=== PATIENT | male | born 1965 | race Caucasian/White ===

== ENCOUNTER → 2023-12-25 12:13 | Outpatient (BNVA) | payer OTHER, SELFPAY | PROVIDERS: PCP Family Medicine; Referring Provider Family Medicine; Visit Provider Internal Medicine | DX: R07.9 Chest pain, unspecified (principal) | CPT/HCPCS: 93005 ==

== ENCOUNTER 2024-01-02 06:39 | Outpatient (CLI) | payer OTHER, SELFPAY ==
--- NOTE | 2024-01-02 07:15 | USCV_ITS ---
Aspen, Jeff Age: 58 Gender: M : 1965 Exam Date: 01/02/2024 06:56 Ordering Phys: Ramone Ibarra M.D ([email or web address]) Technologist: Gerry Gutiérrez Exam Location: [facility] [place] Indication: as BP: 124 / 63 HR: 0 Rhythm: Sinus Technical Quality: Adequate MEASUREMENTS (Male / Female) Normal Values 2D ECHO LV Diastolic Diameter PLAX 5.0 cm 4.2 - 5.9 / 3.9 - 5.3 cm IVS Diastolic Thickness 0.9 cm 0.6 - 1.0 / 0.6 - 0.9 cm IVS Systolic Thickness 1.7 cm LVPW Diastolic Thickness 1.2 cm 0.6 - 1.0 / 0.6 - 0.9 cm LVPW Systolic Thickness 1.7 cm LVOT Diameter 2.0 cm LV Ejection Fraction 2D Teich 69.9 % LV Ejection Fraction MOD 2C 53.6 % LV Ejection Fraction 2C AL 0.0 % LA Diameter 3.9 cm Aorta at Sinotubular Diameter 3.2 cm IVC Diameter 1.9 cm M-MODE LA Ao Ratio MM 1.4 AV Cusp Separation MM 2.2 cm DOPPLER AV Peak Velocity 233.0 cm/s LVOT Peak Velocity 113.0 cm/s AV Area Cont Eq vti 1.3 cm squared AV Area Cont Eq pk 1.4 cm squared MV Area PHT 4.1 cm squared Mitral E to A Ratio 1.5 TV Peak Velocity 192.3 cm/s TR Peak Velocity 217.0 cm/s TR Peak Gradient 18.8 mmHg TV Peak E Velocity 101.0 cm/s Right Atrial Pressure 3.0 mmHg Pulmonary Artery Systolic Pressu 21.8 mmHg FINDINGS Left Ventricle Left ventricle is normal size. LV systolic function is normal with EF of 55-60 %. No regional wall motion abnormalities are seen. Right Ventricle Normal in size and function Right Atrium Normal in size Left Atrium Dilated. Mitral Valve Structurally normal aortic valve. Mild mitral regurgitation. Aortic Valve Aortic valve is thickened. Mild aortic stenosis with aortic valve area 1.43 cm2 and mean gradient of 10 mmHg. Tricuspid Valve Mild tricuspid regurgitation. RVSP is normal. Pulmonic Valve Not well visualized Pericardium Normal Aorta Ascending aorta is dilated. IVC Appears to be normal CONCLUSIONS LV systolic function is normal with EF of 55 to 60%. Left atrial dilation. Mild mitral regurgitation. Mild aortic stenosis. Mild tricuspid regurgitation. Ascending aorta is dilated with diameter of 3.8 cm. No comparison studies are available Ramone Ibarra MD (Electronically Signed) Final Date: 07 January 2024 11:55 S
== END 2024-01-02 06:40 | disposition home or self-care (01) ==
LOC: RAD 06:39
PROVIDERS: PCP Family Medicine; Visit Provider Internal Medicine
DX: I08.3 Combined rheumatic disorders of mitral, aortic and tricuspid valves (principal); R06.02 Shortness of breath
CPT/HCPCS: 93306

== ENCOUNTER 2024-06-13 10:31 | Outpatient (CLI) | payer OTHER, SELFPAY ==
--- NOTE | 2024-06-13 11:00 | USCV_ITS ---
Jeff Louise Age: 59 Gender: M : 1965 Exam Date: 06/13/2024 10:46 Ordering Phys: Ramone Ibarra M.D ([email or web address]) Technologist: CT Exam Location: [facility] [place] Indication: aaa HISTORY: Diameter (cm) AP x Transverse x Length Velocity (cm/s) Waveform Prox Aorta: x x Mid Aorta: 2.50 x 2.40 x 68.80 Distal Aorta: 3.07 x 2.90 x 46.10 Right Iliac Prox: 1.30 x 1.30 x 108.50 Left Iliac Prox: 1.30 x 1.30 x 112.40 Stent Prox Landing x x Aneurysmal Sac Max x x Lt Lat Sac Dim Rt Lat Sac Dim Stent Dist Landing x x Right Iliac Stent x x Left Iliac Stent x x Right Renal Art Left Renal Art FINDINGS: CONCLUSIONS Slight aneurysmal dilatation Distal abdominal aorta measuring 3.1 x 2.9cm Normal iliac arteries Mild atheromatous disease Garland Mera MD (Electronically Signed) Final Date: 13 June 2024 17:33 S
== END 2024-06-13 10:32 | disposition home or self-care (01) ==
LOC: RAD 10:34
PROVIDERS: PCP Family Medicine; Visit Provider Internal Medicine
DX: I71.40 Abdominal aortic aneurysm, without rupture, unspecified (principal)
CPT/HCPCS: 93978

== ENCOUNTER → 2024-11-27 10:42 | Outpatient (BNVA) | payer OTHER, SELFPAY | PROVIDERS: PCP Family Medicine; Visit Provider Nurse Practitioner Family | DX: R00.1 Bradycardia, unspecified (principal); I10 Essential (primary) hypertension | CPT/HCPCS: 93005 ==

== ENCOUNTER 2024-12-29 07:04 | Outpatient (CLI) | payer OTHER, SELFPAY ==
[2024-12-29 07:37] VITALS: BMI 29.5
--- NOTE | 2024-12-29 07:43 | ECG_ITS ---
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 The perfusion scan will be documented separately. DATA: Baseline heart rate was 49 beats per minute. Baseline blood pressure was 120/74 millimeters of mercury. Target heart rate was 159. Maximum heart rate achieved was 74. which was 46% of the predicted target heart rate. Maximum blood pressure was 125/84 millimeters of mercury. The reason for ending the test was completion of the protocol. The patient did not experience any symptoms. ELECTROCARDIOGRAM: BASELINE: Sinus bradycardia. Normal axis. Otherwise, no ST-T changes suggestive of ischemia noted. No arrhythmia noted. EXERCISE: After Lexiscan injection, no ST-T changes suggestive of ischemic noted. No arrhythmia noted. CONCLUSION: Please note due to baseline abnormality of the EKG specificity and sensitivity of the EKG portion of LexiScan MIBI stress test will be low 1. EKG not suggestive of ischemia 2. Lexiscan injection unremarkable. 3. Perfusion scan will be documented separately. Electronically Signed On 01-18-2025 18:52:17 CDT by MACIEJ COATES [email or web address]
--- NOTE | 2024-12-29 07:43 | NMCV_ITS ---
NM leandra perf SPECT r/s* [id number] Jeff Louise Age: 59 Gender: M : 1965 Exam Date: 12/29/2024 08:19 Ordering Phys: Gladis Carl NP Technologist: KEE De La Cruz Exam Location: [facility] Indications: cp STRESS TEST [facility] IMAGE PROTOCOL Rest/Stress 1 Lexiscan Day Radiopharmaceutical Dose (mCi) Administration Site Administered by Rest: Tc-99m 10.6 IV KEE De La Cruz Sestamibi Stress:Tc-99m 32.5 IV KEE Cowart Sestamibi Rest: 29-Dec-2024 60 Discovery 630 Stress: 29-Dec-2024 30 Discovery 630 0.4mg Lexiscan. Images obtained in supine and prone position. SPECT RESULTS Technical Quality: Good Raw Data Analysis: Normal Image Corrections: No attenuation or motion correction applied Summed Stress Score: 9 Summed Rest Score: 14 Summed Difference Score: 2 PERFUSION FINDINGS There is large area of fixed perfusion defect seen in the apical inferior, inferior and inferolateral sena. This is consistent with large areas of prior infarct seen in the RCA territory. FUNCTIONAL RESULTS (calculated via Gated SPECT) Stress Image LV EF (%): 59 Stress EDV (mL):155 TID: 0.88 Stress ESV (mL):64 FUNCTIONAL FINDINGS: There is normal left ventricular systolic function. IMPRESSIONS 1. 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 No significant ischemia 2. LV systolic function is normal Ramone Ibarra MD (Electronically Signed) Final Date: 29 December 2024 11:21 S
[2024-12-29] MEDS: regadenoson 0.4 Mg/5 ml Syringe IVP (08:41)
[2024-12-29 08:53] VITALS: BP 121/61; PULSE 64
== END 2024-12-29 07:05 | disposition home or self-care (01) ==
PROVIDERS: PCP Family Medicine; Visit Provider Nurse Practitioner Family
DX: R07.9 Chest pain, unspecified (principal); R93.1 Abnormal findings on diagnostic imaging of heart and coronary circulation
CPT/HCPCS: 36415; 78452; 93017; 96374; A9500; J2785

== ENCOUNTER 2025-06-30 15:22 | Outpatient (CLI) | payer OTHER, SELFPAY ==
[2025-06-30 15:55] LABS: Anion Gap 13.0 (5-19); Blood Urea Nitrogen 15 mg/dL (8-23); Calcium 9.5 mg/dL (8.5-10.5); Carbon Dioxide 24 mmol/L (22-29); Chloride 103 mmol/L (98-107); Glucose 112 mg/dL (65-115); Osmolality Calculated 284 mOsm/kg (285-295); Potassium 4.0 mmol/L (3.5-5.1); Sodium 136 mmol/L (136-145)
[2025-06-30] MEDS: iohexol 350 mg/mL 500 mL Btl (per mL) IV (16:22)
--- NOTE | 2025-06-30 16:30 | CT_ITS ---
WS: [id number] CTA THORACIC AORTA WITH AND WITHOUT CONTRAST HISTORY: ascending aneurysm TECHNIQUE: CTA imaging of the thorax is performed with and without contrast. After noncontrast imaging is performed, CT angiogram is performed during injection of Omnipaque 350; 100 mL IV.. Sagittal and coronal reconstructions, sagittal and coronal MIP imaging is submitted. All CT scans at [facility] use at least one of these dose optimization techniques: automated exposure control; mA and/or kV adjustment per patient size (includes targeted exams where dose is matched to clinical indication); or iterative reconstruction. DLP: 918.72 mGy.cm COMPARISON: No similar studies. Mild atherosclerotic plaque within the thoracic aorta. Small amount of plaque associated with aortic valve. Good contrast opacification of the thoracic aorta. Maximum ascending aorta diameter is 3.8 cm. Descending aorta at similar location is 2.5 cm. Normal sinotubular junction at 2.7 cm. Normal sinus of Valsalva 3.5 cm. Great vessels arise normally from the arch. Normal descending aorta. No dissection. Normal size heart. Scattered calcifications in the LEFT anterior descending coronary artery. No pericardial or pleural effusions. Lungs are clear and well aerated. Minimal linear scarring or atelectasis in the lingula and at the LEFT lung base. Normal size pulmonary artery. Small hiatal hernia. Mild RIGHT adrenal gland hyperplasia and thickening. No destructive bone lesions. CT/CT angio chest [id number] IMPRESSION: 1. Minimally ectatic ascending aorta with no aneurysm. 2. Mild atherosclerotic plaque within the thoracic aorta. 3. Normal pulmonary artery. 4. LAD coronary calcifications. 5. No pneumonia or pulmonary mass.
== END 2025-06-30 15:23 | disposition home or self-care (01) ==
LOC: RAD 15:24
PROVIDERS: PCP Family Medicine; Visit Provider Nurse Practitioner Family
DX: I77.810 Thoracic aortic ectasia (principal); I70.0 Atherosclerosis of aorta; I25.10 Atherosclerotic heart disease of native coronary artery without angina pectoris
CPT/HCPCS: 36415; 71275; 80048

== ENCOUNTER 2025-07-01 08:26 | Outpatient (CLI) | payer OTHER, SELFPAY ==
--- NOTE | 2025-07-01 09:00 | USCV_ITS ---
Jeff Louise Age: 60 Gender: M : 1965 Exam Date: 07/01/2025 08:36 Ordering Phys: Gladis Carl NP Technologist: Exam Location: [facility] [place] Indication: AAA HISTORY: Diameter (cm) AP x Transverse x Length Velocity (cm/s) Waveform Prox Aorta: 2.70 x 1.90 x 58.50 Mid Aorta: 3.40 x 3.30 x 69.30 Distal Aorta: 3.10 x 3.60 x 38.90 Right Iliac Prox: 1.27 x 1.70 x 94.50 Left Iliac Prox: 1.46 x 1.30 x 67.40 Stent Prox Landing x x Aneurysmal Sac Max x x Lt Lat Sac Dim Rt Lat Sac Dim Stent Dist Landing x x Right Iliac Stent x x Left Iliac Stent x x Right Renal Art Left Renal Art FINDINGS: CONCLUSIONS Infrarenal AAA measuring 3.4 x 3.3cm in the mid aorta and 3.1 x 3.6cm AP x trans distal aorta. Measurements have progressed since 2023 Normal iliac arteries Moderate atheromatous disease Garland Mera MD (Electronically Signed) Final Date: 01 July 2025 17:07 S
== END 2025-07-01 08:27 | disposition home or self-care (01) ==
LOC: RAD 08:27
PROVIDERS: PCP Family Medicine; Visit Provider Nurse Practitioner Family
DX: I71.43 Infrarenal abdominal aortic aneurysm, without rupture (principal); I70.90 Unspecified atherosclerosis
CPT/HCPCS: 93978

== ENCOUNTER 2025-07-10 09:53 | Outpatient (CLI) | payer OTHER, SELFPAY ==
--- NOTE | 2025-07-10 10:30 | USCV_ITS ---
Jeff Louise Age: 60 Gender: M : 1965 Exam Date: 07/10/2025 10:15 Ordering Phys: Ramone Ibarra M.D ([email or web address]) Technologist: JARROD Exam Location: [facility] [place] Indication: stenosis Risk Factors: Previous Vascular Surgery: Right Brachial BP: / Left Brachial BP: / Right Left Velocity (cm/s) Spectral Plaque Velocity (cm/s) Spectral Plaque Syst/Diast Broadening Syst/Diast Broadening 71.10/ 15.40 Prox CCA 89.50 / 13.60 69.80/ 18.00 Mid CCA 49.60 / 13.00 56.90/ 14.10 Distal CCA 51.30 / 11.20 31.60/ 5.60 Prox ICA 34.70 / 12.40 35.60/ 11.30 Mid ICA 47.40 / 17.90 44.20/ 16.00 Distal ICA 50.50 / 18.00 58.30 ECA 64.60 0.60 ICA/CCA 0.70 Antegrade Vertebral Antegrade 28.10/ 7.30 cm/s 32.20/ 8.20 cm/s Tri Subclavian Tri 56.80 110.8 0 FINDINGS Comparison: none available. No significant elevation of systolic or diastolic velocities. Waveforms are normal. Focal calcified plaque through the bifurcations. Antegrade vertebral arteries. CONCLUSIONS Bilateral ICA stenosis less than 50%. Dr. Janneth Yu DO (Electronically Signed) Final Date: 10 July 2025 11:33 S
== END 2025-07-10 09:54 | disposition home or self-care (01) ==
LOC: RAD 09:54
PROVIDERS: PCP Family Medicine; Visit Provider Internal Medicine
DX: I65.23 Occlusion and stenosis of bilateral carotid arteries (principal)
CPT/HCPCS: 93880